=== PATIENT | female | born 2000 | race African-American/Black ===

== ENCOUNTER 2024-01-22 22:32 | Emergency (ER) | payer SELFPAY ==
[2024-01-22 23:46] LABS: Influenza A by NAA Not Detected (NotDetected); Influenza B by NAA Not Detected (NotDetected); SARS-CoV-2 NAA Rapid Test Not Detected (NotDetected)
== END 2024-01-23 00:26 | disposition home or self-care (01) ==
LOC: ERS 22:32
DX: J06.9 Acute upper respiratory infection, unspecified (principal); E11.9 Type 2 diabetes mellitus without complications
CPT/HCPCS: 99283

== ENCOUNTER 2024-05-06 18:13 | Emergency (ER) | payer SELFPAY ==
[2024-05-06] MEDS ORDERED: Acetaminophen 500 MG TAB ONE (18:48)
== END 2024-05-06 19:18 | disposition home or self-care (01) ==
LOC: ERS 18:13
DX: L03.314 Cellulitis of groin (principal); E10.9 Type 1 diabetes mellitus without complications
CPT/HCPCS: 99282

== ENCOUNTER 2024-05-22 11:58 | Emergency (ER) | payer SELFPAY | END 2024-05-22 16:00 | disposition home or self-care (01) | LOC: ERS 11:58 | DX: S43.025A Posterior dislocation of left humerus, initial encounter (principal); E10.9 Type 1 diabetes mellitus without complications; V89.2XXA Person injured in unspecified motor-vehicle accident, traffic, initial encounter | CPT/HCPCS: 93005 ==

== ENCOUNTER 2025-02-13 20:49 | Emergency (ER) | payer SELFPAY | END 2025-02-13 23:49 | disposition home or self-care (01) | LOC: ERS 20:49 | DX: J02.0 Streptococcal pharyngitis (principal) | CPT/HCPCS: 99282 ==